=== PATIENT | male | born 1975 | race Caucasian/White ===

== ENCOUNTER 2016-07-22 18:31 | Emergency (ER) | payer SELFPAY ==
[2016-07-22] MEDS ORDERED: CLINDAMYCIN INJ 900MG/6ML VIAL As Ordered ONE (21:09)
[2016-07-22] MEDS ORDERED: methylPREDNISolone INJ 125 MG/2 ML VIAL (J2930) As Ordered ONE (21:09)
[2016-07-22 21:25] LABS: BASO % 0.3 % (0.0-1.0); EOS # 0.4 K/mm3 (0.0-0.50); EOS % 2.9 % (0.0-3.0); LARGE UNSTAINED CELL # 0.3 K/mm3 (0.0-0.4); LYMPH # 3.1 K/mm3 (1.5-4.5); LYMPH % 21.1 % (24.0-44.0); MEAN CORPUSCULAR HEMOGLOBIN 30.3 pg (27.0-33.0); MEAN CORPUSCULAR HGB CONC 31.5 g/dl (32.0-36.5); MEAN CORPUSCULAR VOLUME 96.5 fl (80.0-96.0); MONO # 0.9 K/mm3 (0.0-0.8); MONO % 6.9 % (0.0-5.0); NEUTROPHILS % 66.8 % (36.0-66.0); PLATELET COUNT, AUTOMATED 158 k/mm3 (150-450); RED CELL DISTRIBUTION WIDTH 12.3 % (11.5-14.5); WHITE BLOOD COUNT 13.5 K/mm3 (4.0-10.0)
[2016-07-22 21:42] LABS: ALBUMIN 3.6 GM/DL (3.2-5.2); ALBUMIN/GLOBULIN RATIO 1.03 (1.00-1.93); ALKALINE PHOSPHATASE 73 U/L (45-117); ALT/SGPT 52 U/L (12-78); ANION GAP 7 MEQ/L (8-16); AST/SGOT 24 U/L (15-37); BILIRUBIN,TOTAL 0.5 MG/DL (0.2-1.0); BLOOD UREA NITROGEN 10 MG/DL (7-18); CARBON DIOXIDE LEVEL 28 MEQ/L (21-32); CHLORIDE LEVEL 103 MEQ/L (98-107); CREATININE FOR GFR 0.97 MG/DL (0.70-1.30); GLOMERULAR FILTRATION RATE > 60.0 (>60); GLUCOSE, FASTING 132 MG/DL (70-105); POTASSIUM SERUM 3.6 MEQ/L (3.5-5.1); SODIUM LEVEL 138 MEQ/L (136-145); TOTAL PROTEIN 7.1 GM/DL (6.4-8.2)
[2016-07-22] MEDS ORDERED: ISOVUE-370 76% 100ML VIAL (Q9967) As Ordered ONE (21:59)
--- NOTE | 2016-07-22 22:50 | REPUSA ---
CT of the facial bones with contrast Clinical history: Pain, injury. Technique: Multiple axial CT images were obtained through the facial bones and paranasal sinuses util izing 3 mm axial slices after administration of nonionic intravenous contrast. Coronal and sagittal r econstructions were also obtained. Findings: This is nonspecific, derate diffuse mucosal thickening is seen in the left maxillary sinus. The other visualized paranasal sinuses are clear. The osteomeatal complexes are patent bilaterally. The nasal septum is midline. The visualized mastoid air cells are clear. The osseous structures do no t demonstrate any acute abnormalities. The superficial soft tissues are minimally swollen in the left preorbital and left maxillary regions. Impression: 1. Minimal superficial soft tissue swelling in the left preorbital and maxillary regions. This is non specific, but could represent early cellulitis in the appropriate clinical setting. No evidence of ab scess. 2. Chronic mucosal changes in the left maxillary sinus.
[2016-07-22 22:57] LABS: ERYTHROCYTE SEDIMENTATION RATE 8 mm/hr (0-15)
[2016-07-22] MEDS ORDERED: KETOROLAC 30 MG/ML VIAL (J1885) As Ordered ONE (23:07)
--- NOTE | 2016-07-22 23:17 | EDDOCDS ---
Physician Documentation [facility] Name: Uri Vogel Age: 41 yrs Sex: Male : 1975 Arrival Date: 07/22/2016 Time: 18:31 Bed I5 / M5 Private MD: NO PRIMARY PHYSICIAN, . Disposition: 07/22/16 23:03 Discharged to Home/Self Care. Impression: Cellulitis of face, Dental caries. - Condition is Stable. - Discharge Instructions: Dental Pain, Cellulitis, [id number]. - Prescriptions for Clindamycin HCl 300 mg Oral Capsule - take 1 capsule by ORAL route every 6 hours; 40 capsule. Diclofenac Sodium 75 mg Oral Tablet, Delayed Release (E.C.) - take 1 tablet by ORAL route 2 times per day; 30 tablet. - Medication Reconciliation, Local Pharmacy Hours form. - Follow up: Emergency Department; When: Tomorrow; Reason: Further diagnostic work-up, Recheck today's complaints, Continuance of care. - Problem is new. - Symptoms are unchanged. - Notes: IT IS IMPORTANT THAT YOU RETURN TO THE EMERGENCY DEPARTMENT AT 7AM TOMORROW MORNING FOR RE-EVALUATION AND REPEAT THE DOSE OF YOUR ANTIBIOTICS. Historical: - Allergies: no known allergies; - Home Meds: 1. none - PSHx: none; - Social history: Smoking status: Patient uses tobacco products, heavy tobacco smoker. No barriers to communication noted, The patient speaks fluent Welsh. - Family history: Not pertinent. - : The pt / caregiver states he / she is not on anticoagulants. Home medication list is obtained from the patient. - Exposure Risk Screening:: None identified. Vital Signs: 07/22 18:32 BP 186 / 103 LA Sitting (auto/lg); Pulse 108; Resp 18; Temp 97.6(O); Pulse Ox 98% on ct3 R/A; Weight 140.16 kg / 309 lbs (M); Height 5 ft. 6 in. (167.64 cm) (R); Pain 7/10; 18:32 BP 202 / 108 RA Sitting (auto/lg); ct3 20:54 BP 172 / 98; Pulse 92; Resp 18; Temp 97.8; Pulse Ox 97% ; Pain 8/10; ajs 23:08 BP 164 / 92 (man/); Pulse 82; Resp 20; Temp 95.3(T); Pulse Ox 96% on R/A; Pain 5/10; dsf 18:32 Body Mass Index 49.87 (140.16 kg, 167.64 cm) ct3 MDM: 20:43 IV Saline Lock ordered. btw 20:43 Recheck Vital Signs, perform reassessment and enter into [employer] ordered. btw 20:43 Clindamycin 900 mg IVPB once over 30 mins; dilute in 50mL of NS or D5W ordered. btw 20:43 Solu-MEDROL 125 mg IVP once ordered. btw 20:44 CBC with Diff Ordered. EDMS 20:44 Complete Comphrensive Metabolic Ordered. EDMS 20:44 CRP Ordered. EDMS 20:44 ESR Ordered. EDMS 20:44 CT Maxillofacial with contrast Ordered. EDMS 21:14 Financial registration complete. [facility] 21:25 [facility] Payment Agreement was scanned into [employer] and attached to record. gjb 21:44 CBC with Diff Reviewed. btw 21:44 Complete Comphrensive Metabolic Reviewed. btw 21:44 CRP Reviewed. btw 23:05 CBC with Diff Reviewed. btw 23:05 ESR Reviewed. btw 23:05 CT Maxillofacial with contrast Reviewed. btw 23:05 ketorolac 30 mg IVP once ordered. btw Administered Medications: 21:15 Drug: Solu-MEDROL 125 mg [Solu-Medrol 500 mg intravenous solution (125 mg)] Route: IVP; dsf Site: right hand; 21:16 Drug: Clindamycin 900 mg Route: IVPB; Infused Over: 30 mins; Site: right hand; dsf 21:52 Follow up: IV Status: Completed infusion; IV Intake: 50ml ld5 23:14 Drug: ketorolac 30 mg [ketorolac 30 mg/mL (1 mL) injection solution (1 mL)] Route: IVP; ld5 Site: right hand; 23:14 Follow up: Response: Pt left department before re-evaluation is appropriate ld5 Signatures: Dispatcher [employer] Kelsea Garduno RN RN dls Wolfenden, Brandon, PA PA btw Beverly Nelson RN RN ld5 Susana Burns Desiree RN dsf The chart was reviewed and I authenticate all verbal orders and agree with the evaluation and treatment provided.Attachments: 21:25 [facility] Payment Agreement gjb MTDD
--- NOTE | 2016-07-22 23:17 | EDDOCDS ---
Nurse's Notes [facility] Name: Uri Vogel Age: 41 yrs Sex: Male : 1975 Arrival Date: 07/22/2016 Time: 18:31 Bed I5 / M5 Private MD: NO PRIMARY PHYSICIAN, . Diagnosis: Cellulitis of face;Dental caries Presentation: 07/22 18:37 Presenting complaint: Patient states: Pt presents with left sided upper dental pain x 2 dls days tonight face and lower eyelid are swollen. Adult Sepsis Screening: The patient does not have new or worsening altered mentation. Patient's respiratory rate is less than 22. Systolic blood pressure is greater than 100. Patient has a qSOFA score of 1- Negative Sepsis Screen. Suicide/Homicide risk assessment- the patient denies having any suicidal and/or homicidal ideations and does not present with any other emotional, behavioral or mental health complaints. Status: Patient is not a general service officer or dependent. Transition of care: patient was not received from another setting of care. 18:37 Acuity: MACARENA Level 3 dls 18:37 Method Of Arrival: Walkin/Carried/Asstd dls Triage Assessment: 18:38 General: Appears uncomfortable, well developed, Behavior is cooperative. Pain: Pain dls currently is 7 out of 10 on a pain scale. HIV screening NA for this visit Offered previously. Historical: - Allergies: no known allergies; - Home Meds: 1. none - PSHx: none; - Social history: Smoking status: Patient uses tobacco products, heavy tobacco smoker. No barriers to communication noted, The patient speaks fluent Uzbek. - Family history: Not pertinent. - : The pt / caregiver states he / she is not on anticoagulants. Home medication list is obtained from the patient. - Exposure Risk Screening:: None identified. Screenin:14 Screening information is obtained from the patient. Fall risk: No risks identified. ld5 Assistance ADL's: requires no assistance with activities of daily living. Abuse/DV Screen: The patient / caregiver reports he/she is: not in a situation that causes fear, pain or injury. Nutritional screening: No deficits noted. Advance Directives: Currently, there is no health care proxy. home support is adequate. Assessment: 21:08 Adult Sepsis Screening: The patient does not have new or worsening altered mentation. dsf Patient's respiratory rate is less than 22. Systolic blood pressure is greater than 100. Patient has a qSOFA score of 0- Negative Sepsis Screen. General: Appears in no apparent distress, Behavior is appropriate for age, cooperative. Pain: Location: left cheek and left jaw Pain currently is 7 out of 10 on a pain scale. Neurological: Level of Consciousness is awake, alert. EENT: swelling and redness noted underneath left eye . Reports pain in left cheek and left jaw. Respiratory: Airway is patent Respiratory effort is even, unlabored, Respiratory pattern is regular, symmetrical. Derm: Skin is pink, warm & dry. 21:52 General: Pt sitting up in bed watching TV and playing on phone. No apparent distress. ld5 Awaiting CT scan. Will continue to monitor. 22:18 General: Pt returned from CT. Tolerated well. Will continue to monitor. ld5 22:31 General: Appears in no apparent distress, Behavior is appropriate for age, cooperative. dsf Pain: Location: left jaw and left cheek Pain currently is 5 out of 10 on a pain scale. Neurological: Level of Consciousness is awake, alert. Cardiovascular: No deficits noted. Respiratory: No deficits noted. Derm: Skin is pink, warm & dry. 23:14 General: Appears in no apparent distress, Behavior is cooperative. Neurological: Level ld5 of Consciousness is awake, alert. Respiratory: Airway is patent Respiratory effort is even, unlabored. Vital Signs: 18:32 BP 186 / 103 LA Sitting (auto/lg); Pulse 108; Resp 18; Temp 97.6(O); Pulse Ox 98% on ct3 R/A; Weight 140.16 kg (M); Height 5 ft. 6 in. (167.64 cm) (R); Pain 7/10; 18:32 BP 202 / 108 RA Sitting (auto/lg); ct3 20:54 BP 172 / 98; Pulse 92; Resp 18; Temp 97.8; Pulse Ox 97% ; Pain 8/10; ajs 23:08 BP 164 / 92 (man/); Pulse 82; Resp 20; Temp 95.3(T); Pulse Ox 96% on R/A; Pain 5/10; dsf 18:32 Body Mass Index 49.87 (140.16 kg, 167.64 cm) ct3 Vitals: 18:32 Log In Time: July 22, 2016 at 18:30. ct3 ED Course: 18:31 Patient visited by Janene Evangelista PCA. ct3 18:31 Patient moved to Waiting ct3 18:32 NO PRIMARY PHYSICIAN, . is Private Physician. ct3 18:35 Patient moved to Pre RCE ct3 18:38 Triage Initiated dls 20:20 Patient moved to Triage 2 jjr 20:35 Kevon Valle PA is PHCP. btw 20:35 Marques Taylor DO is Attending Physician. btw 20:35 Patient visited by Kevon Valle PA. btw 20:40 Debbie Varma,RN is Primary Nurse. ko2 20:40 Carmelina Aly, SHASHI is Primary Nurse. ko2 20:40 Patient moved to I3 / M3 ko2 20:43 Patient moved to I5 / M5 ko2 20:54 Patient visited by Veena Fitzgerald. ajs 21:07 ESR Sent. dsf 21:07 CRP Sent. dsf 21:07 Complete Comphrensive Metabolic Sent. dsf 21:07 CBC with Diff Sent. dsf 21:08 Inserted saline lock: 20 gauge in right hand The patient tolerated the procedure well. dsf 21:09 Patient visited by Sylvie Mac RN. dsf 21:25 [facility] Agreement was scanned into [employer] and attached to record. gjb 21:38 Patient name changed from Uri\S\\S\Coonradt\S\ to Uri\S\ \S\Coonradt. EDMS 21:52 Patient visited by Beverly Nelson RN. ld5 22:19 Patient visited by Beverly Nelson RN. ld5 22:32 Patient visited by Sylvie Mac RN. dsf 22:56 CT Maxillofacial with contrast Returned. EDMS 23:09 Flushed right hand Converted IV to saline lock on right hand right hand wrapped with dsf kerlix . 23:10 Patient visited by Sylvie Mac RN. dsf 23:14 The patient / caregiver is instructed regarding the plan of care and ED course. Patient ld5 has correct armband on for positive identification. 23:14 No procedures done that require assistance. ld5 23:17 Patient visited by Beverly Nelson RN. ld5 Administered Medications: 21:15 Drug: Solu-MEDROL 125 mg [Solu-Medrol 500 mg intravenous solution (125 mg)] Route: IVP; dsf Site: right hand; 21:16 Drug: Clindamycin 900 mg Route: IVPB; Infused Over: 30 mins; Site: right hand; dsf 21:52 Follow up: IV Status: Completed infusion; IV Intake: 50ml ld5 23:14 Drug: ketorolac 30 mg [ketorolac 30 mg/mL (1 mL) injection solution (1 mL)] Route: IVP; ld5 Site: right hand; 23:14 Follow up: Response: Pt left department before re-evaluation is appropriate ld5 Intake: 21:52 IV: 50.00ml; Total: 50.00ml. ld5 Order Results: Lab Order: CBC with Diff; SPEC'M 07/22/16 21:06 Test: WHITE BLOOD COUNT; Value: 13.5; Range: 4.0-10.0; Abnormal: Above high normal; Units: K/mm3; Status: F Test: RED BLOOD COUNT; Value: 4.83; Range: 4.30-6.10; Units: M/mm3; Status: F Test: HEMOGLOBIN; Value: 14.7; Range: 14.0-18.0; Units: g/dl; Status: F Test: HEMATOCRIT; Value: 46.6; Range: 42.0-52.0; Units: %; Status: F Test: MEAN CORPUSCULAR VOLUME; Value: 96.5; Range: 80.0-96.0; Abnormal: Above high normal; Units: fl; Status: F Test: MEAN CORPUSCULAR HEMOGLOBIN; Value: 30.3; Range: 27.0-33.0; Units: pg; Status: F Test: MEAN CORPUSCULAR HGB CONC; Value: 31.5; Range: 32.0-36.5; Abnormal: Below low normal; Units: g/dl; Status: F Test: RED CELL DISTRIBUTION WIDTH; Value: 12.3; Range: 11.5-14.5; Units: %; Status: F Test: PLATELET COUNT, AUTOMATED; Value: 158; Range: 150-450; Units: k/mm3; Status: F Test: NEUTROPHILS %; Value: 66.8; Range: 36.0-66.0; Abnormal: Above high normal; Units: %; Status: F Test: LYMPH %; Value: 21.1; Range: 24.0-44.0; Abnormal: Below low normal; Units: %; Status: F Test: MONO %; Value: 6.9; Range: 0.0-5.0; Abnormal: Above high normal; Units: %; Status: F Test: EOS %; Value: 2.9; Range: 0.0-3.0; Units: %; Status: F Test: BASO %; Value: 0.3; Range: 0.0-1.0; Units: %; Status: F Test: LARGE UNSTAINED CELL %; Value: 2.0; Range: 0.0-4.0; Units: %; Status: F Test: NEUTROPHILS #; Value: 9.0; Range: 1.8-7.7; Abnormal: Above high normal; Units: K/mm3; Status: F Test: LYMPH #; Value: 3.1; Range: 1.5-4.5; Units: K/mm3; Status: F Test: MONO #; Value: 0.9; Range: 0.0-0.8; Abnormal: Above high normal; Units: K/mm3; Status: F Test: EOS #; Value: 0.4; Range: 0.0-0.50; Units: K/mm3; Status: F Test: BASO #; Value: 0.0; Range: 0.0-0.2; Units: K/mm3; Status: F Test: LARGE UNSTAINED CELL #; Value: 0.3; Range: 0.0-0.4; Units: K/mm3; Status: F Lab Order: Complete Comphrensive Metabolic; SPEC'M 07/22/16 21:06 Test: GLUCOSE, FASTING; Value: 132; Range: 70-105; Abnormal: Above high normal; Units: MG/DL; Status: F Test: BLOOD UREA NITROGEN; Value: 10; Range: 7-18; Units: MG/DL; Status: F Test: CREATININE FOR GFR; Value: 0.97; Range: 0.70-1.30; Units: MG/DL; Status: F Test: GLOMERULAR FILTRATION RATE; Value: > 60.0; Range: >60; Status: F Test: SODIUM LEVEL; Value: 138; Range: 136-145; Units: MEQ/L; Status: F Test: POTASSIUM SERUM; Value: 3.6; Range: 3.5-5.1; Units: MEQ/L; Status: F Test: CHLORIDE LEVEL; Value: 103; Range: 98-107; Units: MEQ/L; Status: F Test: CARBON DIOXIDE LEVEL; Value: 28; Range: 21-32; Units: MEQ/L; Status: F Test: ANION GAP; Value: 7; Range: 8-16; Abnormal: Below low normal; Units: MEQ/L; Status: F Test: CALCIUM LEVEL; Value: 8.0; Range: 8.5-10.1; Abnormal: Below low normal; Units: MG/DL; Status: F Test: AST/SGOT; Value: 24; Range: 15-37; Units: U/L; Status: F Test: ALT/SGPT; Value: 52; Range: 12-78; Units: U/L; Status: F Test: ALKALINE PHOSPHATASE; Value: 73; Range: 45-117; Units: U/L; Status: F Test: BILIRUBIN,TOTAL; Value: 0.5; Range: 0.2-1.0; Units: MG/DL; Status: F Test: TOTAL PROTEIN; Value: 7.1; Range: 6.4-8.2; Units: GM/DL; Status: F Test: ALBUMIN; Value: 3.6; Range: 3.2-5.2; Units: GM/DL; Status: F Test: ALBUMIN/GLOBULIN RATIO; Value: 1.03; Range: 1.00-1.93; Status: F Test Note: ; Units are mL/min/1.73 m2 Chronic Kidney Disease Staging per NKF: Stage I & II GFR >=60 Normal to Mildly Decreased Stage III GFR 30-59 Moderately Decreased Stage IV GFR 15-29 Severely Decreased Stage V GFR <15 Very Little GFR Left ESRD GFR <15 on SENIOR STORAGE ADMINISTRATOR Lab Order: CRP; SPEC'M 07/22/16 21:06 Test: C REACTIVE PROTEIN QUANTITATIV; Value: 4.16; Range: 0.00-0.30; Abnormal: Above high normal; Units: MG/DL; Status: F Lab Order: ESR; SPEC'M 07/22/16 21:06 Test: ERYTHROCYTE SEDIMENTATION RATE; Value: 8; Range: 0-15; Units: mm/hr; Status: F Radiology Order: CT Maxillofacial with contrast Test: CT Maxillofacial with contrast REASON FOR EXAMINATION: ? abscess vs cellulitis.; ; CT of the facial bones with contrast; Clinical history: Pain, injury.; Technique: Multiple axial CT images were obtained through the facial bones and paranasal sinuses util; izing 3 mm axial slices after administration of nonionic intravenous contrast. Coronal and sagittal r; econstructions were also obtained.; Findings: This is nonspecific, derate diffuse mucosal thickening is seen in the left maxillary sinus.; The other visualized paranasal sinuses are clear. The osteomeatal complexes are patent bilaterally.; The nasal septum is midline. The visualized mastoid air cells are clear. The osseous structures do no; t demonstrate any acute abnormalities. The superficial soft tissues are minimally swollen in the left; preorbital and left maxillary regions.; Impression:; 1. Minimal superficial soft tissue swelling in the left preorbital and maxillary regions. This is non; specific, but could represent early cellulitis in the appropriate clinical setting. No evidence of ab; scess.; 2. Chronic mucosal changes in the left maxillary sinus.; ; Outcome: 23:03 Discharge ordered by Provider. btw 23:14 Discharge Assessment: Patient awake, alert and oriented x 3. No cognitive and/or ld5 functional deficits noted. Patient verbalized understanding of disposition instructions. patient administered narcotics - no. The following High Risk Discharge criteria are identified: None. Discharged to home ambulatory. Condition: stable. Discharge instructions given to patient, Instructed on discharge instructions, follow up and referral plans. medication usage, Demonstrated understanding of instructions, medications, Pt was receptive of discharge instructions/ teaching. Prescriptions given X 2. CT Study completed. Property :Personal belongings accompany Pt. 23:16 Patient left the ED. ld5 Signatures: Dispatcher MedHost EDMS Kelsea Khan RN RN dls Raymond, Jessica, RN RN jjr Wolfenden, Brandon, PA PA btw Beverly Nelson RN RN ld5 Janene Evangelista, CHIEF BUILDING INSPECTOR CHIEF BUILDING INSPECTOR ct3 Sylvie Mac RN RN dsf Slate, Amanda ajs Ogden, Kari, RN RN ko2 Susana Burns Corrections: (The following items were deleted from the chart) 18:35 18:32 BP 186 / 103 Sitting Auto L Arm Large; Pulse 108bpm; Resp 18bpm; Pulse Ox 98% RA; ct3 Temp 97.6F Oral; Height 5 ft. 6 in. Reported; Pain 7/10; ct3 MTDD
--- NOTE | 2016-07-25 00:18 | EDDOCDS ---
Physician Documentation [facility] Name: Uri Vogel Age: 41 yrs Sex: Male : 1975 Arrival Date: 07/22/2016 Time: 18:31 Bed I5 / M5 Private MD: NO PRIMARY PHYSICIAN, . Disposition: 07/22/16 23:03 Discharged to Home/Self Care. Impression: Cellulitis of face, Dental caries. - Condition is Stable. - Discharge Instructions: Dental Pain, Cellulitis, [id number]. - Prescriptions for Clindamycin HCl 300 mg Oral Capsule - take 1 capsule by ORAL route every 6 hours; 40 capsule. Diclofenac Sodium 75 mg Oral Tablet, Delayed Release (E.C.) - take 1 tablet by ORAL route 2 times per day; 30 tablet. - Medication Reconciliation, Local Pharmacy Hours form. - Follow up: Emergency Department; When: Tomorrow; Reason: Further diagnostic work-up, Recheck today's complaints, Continuance of care. - Problem is new. - Symptoms are unchanged. - Notes: IT IS IMPORTANT THAT YOU RETURN TO THE EMERGENCY DEPARTMENT AT 7AM TOMORROW MORNING FOR RE-EVALUATION AND REPEAT THE DOSE OF YOUR ANTIBIOTICS. Historical: - Allergies: no known allergies; - Home Meds: 1. none - PSHx: none; - Social history: Smoking status: Patient uses tobacco products, heavy tobacco smoker. No barriers to communication noted, The patient speaks fluent Wolof. - Family history: Not pertinent. - : The pt / caregiver states he / she is not on anticoagulants. Home medication list is obtained from the patient. - Exposure Risk Screening:: None identified. Vital Signs: 07/22 18:32 BP 186 / 103 LA Sitting (auto/lg); Pulse 108; Resp 18; Temp 97.6(O); Pulse Ox 98% on ct3 R/A; Weight 140.16 kg / 309 lbs (M); Height 5 ft. 6 in. (167.64 cm) (R); Pain 7/10; 18:32 BP 202 / 108 RA Sitting (auto/lg); ct3 20:54 BP 172 / 98; Pulse 92; Resp 18; Temp 97.8; Pulse Ox 97% ; Pain 8/10; ajs 23:08 BP 164 / 92 (man/); Pulse 82; Resp 20; Temp 95.3(T); Pulse Ox 96% on R/A; Pain 5/10; dsf 18:32 Body Mass Index 49.87 (140.16 kg, 167.64 cm) ct3 MDM: 20:43 IV Saline Lock ordered. btw 20:43 Recheck Vital Signs, perform reassessment and enter into [place] ordered. btw 20:43 Clindamycin 900 mg IVPB once over 30 mins; dilute in 50mL of NS or D5W ordered. btw 20:43 Solu-MEDROL 125 mg IVP once ordered. btw 20:44 CBC with Diff Ordered. EDMS 20:44 Complete Comphrensive Metabolic Ordered. EDMS 20:44 CRP Ordered. EDMS 20:44 ESR Ordered. EDMS 20:44 CT Maxillofacial with contrast Ordered. EDMS 21:14 Financial registration complete. [facility] [place] 21:25 [facility] Payment Agreement was scanned into [employer] and attached to record. gjb 21:44 CBC with Diff Reviewed. btw 21:44 Complete Comphrensive Metabolic Reviewed. btw 21:44 CRP Reviewed. btw 23:05 CBC with Diff Reviewed. btw 23:05 ESR Reviewed. btw 23:05 CT Maxillofacial with contrast Reviewed. btw 23:05 ketorolac 30 mg IVP once ordered. btw 07/23 09:45 T-Sheet-- Draft Copy was scanned into [employer] and attached to record. gb Administered Medications: 07/22 21:15 Drug: Solu-MEDROL 125 mg [Solu-Medrol 500 mg intravenous solution (125 mg)] Route: IVP; dsf Site: right hand; 21:16 Drug: Clindamycin 900 mg Route: IVPB; Infused Over: 30 mins; Site: right hand; dsf 21:52 Follow up: IV Status: Completed infusion; IV Intake: 50ml ld5 23:14 Drug: ketorolac 30 mg [ketorolac 30 mg/mL (1 mL) injection solution (1 mL)] Route: IVP; ld5 Site: right hand; 23:14 Follow up: Response: Pt left department before re-evaluation is appropriate ld5 Signatures: Dispatcher [employer] EDKelsea Devine RN RN dls Yumiko Obrien, Reg Reg Kevon Millan PA PA btw Beverly Nelson RN RN ld5 Susana Burns Desiree RN dsf The chart was reviewed and I authenticate all verbal orders and agree with the evaluation and treatment provided.Attachments: 21:25 [facility] Payment Agreement [email or web address] 07/23 09:45 T-Sheet-- Draft Copy gb Chart Complete MTDD
--- NOTE | 2016-07-25 00:18 | EDDOCDS ---
Nurse's Notes [facility] Name: Uri Vogel Age: 41 yrs Sex: Male : 1975 Arrival Date: 07/22/2016 Time: 18:31 Bed I5 / M5 Private MD: NO PRIMARY PHYSICIAN, . Diagnosis: Cellulitis of face;Dental caries Presentation: 07/22 18:37 Presenting complaint: Patient states: Pt presents with left sided upper dental pain x 2 dls days tonight face and lower eyelid are swollen. Adult Sepsis Screening: The patient does not have new or worsening altered mentation. Patient's respiratory rate is less than 22. Systolic blood pressure is greater than 100. Patient has a qSOFA score of 1- Negative Sepsis Screen. Suicide/Homicide risk assessment- the patient denies having any suicidal and/or homicidal ideations and does not present with any other emotional, behavioral or mental health complaints. Status: Patient is not a health service coordinator or dependent. Transition of care: patient was not received from another setting of care. 18:37 Acuity: MACARENA Level 3 dls 18:37 Method Of Arrival: Walkin/Carried/Asstd dls Triage Assessment: 18:38 General: Appears uncomfortable, well developed, Behavior is cooperative. Pain: Pain dls currently is 7 out of 10 on a pain scale. HIV screening NA for this visit Offered previously. Historical: - Allergies: no known allergies; - Home Meds: 1. none - PSHx: none; - Social history: Smoking status: Patient uses tobacco products, heavy tobacco smoker. No barriers to communication noted, The patient speaks fluent Maori. - Family history: Not pertinent. - : The pt / caregiver states he / she is not on anticoagulants. Home medication list is obtained from the patient. - Exposure Risk Screening:: None identified. Screenin:14 Screening information is obtained from the patient. Fall risk: No risks identified. ld5 Assistance ADL's: requires no assistance with activities of daily living. Abuse/DV Screen: The patient / caregiver reports he/she is: not in a situation that causes fear, pain or injury. Nutritional screening: No deficits noted. Advance Directives: Currently, there is no health care proxy. home support is adequate. Assessment: 21:08 Adult Sepsis Screening: The patient does not have new or worsening altered mentation. dsf Patient's respiratory rate is less than 22. Systolic blood pressure is greater than 100. Patient has a qSOFA score of 0- Negative Sepsis Screen. General: Appears in no apparent distress, Behavior is appropriate for age, cooperative. Pain: Location: left cheek and left jaw Pain currently is 7 out of 10 on a pain scale. Neurological: Level of Consciousness is awake, alert. EENT: swelling and redness noted underneath left eye . Reports pain in left cheek and left jaw. Respiratory: Airway is patent Respiratory effort is even, unlabored, Respiratory pattern is regular, symmetrical. Derm: Skin is pink, warm & dry. 21:52 General: Pt sitting up in bed watching TV and playing on phone. No apparent distress. ld5 Awaiting CT scan. Will continue to monitor. 22:18 General: Pt returned from CT. Tolerated well. Will continue to monitor. ld5 22:31 General: Appears in no apparent distress, Behavior is appropriate for age, cooperative. dsf Pain: Location: left jaw and left cheek Pain currently is 5 out of 10 on a pain scale. Neurological: Level of Consciousness is awake, alert. Cardiovascular: No deficits noted. Respiratory: No deficits noted. Derm: Skin is pink, warm & dry. 23:14 General: Appears in no apparent distress, Behavior is cooperative. Neurological: Level ld5 of Consciousness is awake, alert. Respiratory: Airway is patent Respiratory effort is even, unlabored. Vital Signs: 18:32 BP 186 / 103 LA Sitting (auto/lg); Pulse 108; Resp 18; Temp 97.6(O); Pulse Ox 98% on ct3 R/A; Weight 140.16 kg (M); Height 5 ft. 6 in. (167.64 cm) (R); Pain 7/10; 18:32 BP 202 / 108 RA Sitting (auto/lg); ct3 20:54 BP 172 / 98; Pulse 92; Resp 18; Temp 97.8; Pulse Ox 97% ; Pain 8/10; ajs 23:08 BP 164 / 92 (man/); Pulse 82; Resp 20; Temp 95.3(T); Pulse Ox 96% on R/A; Pain 5/10; dsf 18:32 Body Mass Index 49.87 (140.16 kg, 167.64 cm) ct3 Vitals: 18:32 Log In Time: July 22, 2016 at 18:30. ct3 ED Course: 18:31 Patient visited by Janene Evangelista PCA. ct3 18:31 Patient moved to Waiting ct3 18:32 NO PRIMARY PHYSICIAN, . is Private Physician. ct3 18:35 Patient moved to Pre RCE ct3 18:38 Triage Initiated dls 20:20 Patient moved to Triage 2 jjr 20:35 Kevon Valle PA is PHCP. btw 20:35 Marques Taylor DO is Attending Physician. btw 20:35 Patient visited by Kevon Valle PA. btw 20:40 Debbie Varma,RN is Primary Nurse. ko2 20:40 Carmelina Aly, SHASHI is Primary Nurse. ko2 20:40 Patient moved to I3 / M3 ko2 20:43 Patient moved to I5 / M5 ko2 20:54 Patient visited by Veena Fitzgerald. ajs 21:07 ESR Sent. dsf 21:07 CRP Sent. dsf 21:07 Complete Comphrensive Metabolic Sent. dsf 21:07 CBC with Diff Sent. dsf 21:08 Inserted saline lock: 20 gauge in right hand The patient tolerated the procedure well. dsf 21:09 Patient visited by Sylvie Mac RN. dsf 21:25 [facility] Payment Agreement was scanned into [employer] and attached to record. gjb 21:38 Patient name changed from Uri\S\\S\Coonradt\S\ to Uri\S\ \S\Coonradt. EDMS 21:52 Patient visited by Beverly Nelson RN. ld5 22:19 Patient visited by Beverly Nelson RN. ld5 22:32 Patient visited by Sylvie Mac RN. dsf 22:56 CT Maxillofacial with contrast Returned. EDMS 23:09 Flushed right hand Converted IV to saline lock on right hand right hand wrapped with dsf kerlix . 23:10 Patient visited by Sylvie Mac RN. dsf 23:14 The patient / caregiver is instructed regarding the plan of care and ED course. Patient ld5 has correct armband on for positive identification. 23:14 No procedures done that require assistance. ld5 23:17 Patient visited by Beverly Nelson RN. ld5 07/23 09:45 T-Sheet-- Draft Copy was scanned into [employer] and attached to record. gb Administered Medications: 07/22 21:15 Drug: Solu-MEDROL 125 mg [Solu-Medrol 500 mg intravenous solution (125 mg)] Route: IVP; dsf Site: right hand; 21:16 Drug: Clindamycin 900 mg Route: IVPB; Infused Over: 30 mins; Site: right hand; dsf 21:52 Follow up: IV Status: Completed infusion; IV Intake: 50ml ld5 23:14 Drug: ketorolac 30 mg [ketorolac 30 mg/mL (1 mL) injection solution (1 mL)] Route: IVP; ld5 Site: right hand; 23:14 Follow up: Response: Pt left department before re-evaluation is appropriate ld5 Intake: 21:52 IV: 50.00ml; Total: 50.00ml. ld5 Order Results: Lab Order: CBC with Diff; SPEC'M 07/22/16 21:06 Test: WHITE BLOOD COUNT; Value: 13.5; Range: 4.0-10.0; Abnormal: Above high normal; Units: K/mm3; Status: F Test: RED BLOOD COUNT; Value: 4.83; Range: 4.30-6.10; Units: M/mm3; Status: F Test: HEMOGLOBIN; Value: 14.7; Range: 14.0-18.0; Units: g/dl; Status: F Test: HEMATOCRIT; Value: 46.6; Range: 42.0-52.0; Units: %; Status: F Test: MEAN CORPUSCULAR VOLUME; Value: 96.5; Range: 80.0-96.0; Abnormal: Above high normal; Units: fl; Status: F Test: MEAN CORPUSCULAR HEMOGLOBIN; Value: 30.3; Range: 27.0-33.0; Units: pg; Status: F Test: MEAN CORPUSCULAR HGB CONC; Value: 31.5; Range: 32.0-36.5; Abnormal: Below low normal; Units: g/dl; Status: F Test: RED CELL DISTRIBUTION WIDTH; Value: 12.3; Range: 11.5-14.5; Units: %; Status: F Test: PLATELET COUNT, AUTOMATED; Value: 158; Range: 150-450; Units: k/mm3; Status: F Test: NEUTROPHILS %; Value: 66.8; Range: 36.0-66.0; Abnormal: Above high normal; Units: %; Status: F Test: LYMPH %; Value: 21.1; Range: 24.0-44.0; Abnormal: Below low normal; Units: %; Status: F Test: MONO %; Value: 6.9; Range: 0.0-5.0; Abnormal: Above high normal; Units: %; Status: F Test: EOS %; Value: 2.9; Range: 0.0-3.0; Units: %; Status: F Test: BASO %; Value: 0.3; Range: 0.0-1.0; Units: %; Status: F Test: LARGE UNSTAINED CELL %; Value: 2.0; Range: 0.0-4.0; Units: %; Status: F Test: NEUTROPHILS #; Value: 9.0; Range: 1.8-7.7; Abnormal: Above high normal; Units: K/mm3; Status: F Test: LYMPH #; Value: 3.1; Range: 1.5-4.5; Units: K/mm3; Status: F Test: MONO #; Value: 0.9; Range: 0.0-0.8; Abnormal: Above high normal; Units: K/mm3; Status: F Test: EOS #; Value: 0.4; Range: 0.0-0.50; Units: K/mm3; Status: F Test: BASO #; Value: 0.0; Range: 0.0-0.2; Units: K/mm3; Status: F Test: LARGE UNSTAINED CELL #; Value: 0.3; Range: 0.0-0.4; Units: K/mm3; Status: F Lab Order: Complete Comphrensive Metabolic; SPEC'M 07/22/16 21:06 Test: GLUCOSE, FASTING; Value: 132; Range: 70-105; Abnormal: Above high normal; Units: MG/DL; Status: F Test: BLOOD UREA NITROGEN; Value: 10; Range: 7-18; Units: MG/DL; Status: F Test: CREATININE FOR GFR; Value: 0.97; Range: 0.70-1.30; Units: MG/DL; Status: F Test: GLOMERULAR FILTRATION RATE; Value: > 60.0; Range: >60; Status: F Test: SODIUM LEVEL; Value: 138; Range: 136-145; Units: MEQ/L; Status: F Test: POTASSIUM SERUM; Value: 3.6; Range: 3.5-5.1; Units: MEQ/L; Status: F Test: CHLORIDE LEVEL; Value: 103; Range: 98-107; Units: MEQ/L; Status: F Test: CARBON DIOXIDE LEVEL; Value: 28; Range: 21-32; Units: MEQ/L; Status: F Test: ANION GAP; Value: 7; Range: 8-16; Abnormal: Below low normal; Units: MEQ/L; Status: F Test: CALCIUM LEVEL; Value: 8.0; Range: 8.5-10.1; Abnormal: Below low normal; Units: MG/DL; Status: F Test: AST/SGOT; Value: 24; Range: 15-37; Units: U/L; Status: F Test: ALT/SGPT; Value: 52; Range: 12-78; Units: U/L; Status: F Test: ALKALINE PHOSPHATASE; Value: 73; Range: 45-117; Units: U/L; Status: F Test: BILIRUBIN,TOTAL; Value: 0.5; Range: 0.2-1.0; Units: MG/DL; Status: F Test: TOTAL PROTEIN; Value: 7.1; Range: 6.4-8.2; Units: GM/DL; Status: F Test: ALBUMIN; Value: 3.6; Range: 3.2-5.2; Units: GM/DL; Status: F Test: ALBUMIN/GLOBULIN RATIO; Value: 1.03; Range: 1.00-1.93; Status: F Test Note: ; Units are mL/min/1.73 m2 Chronic Kidney Disease Staging per NKF: Stage I & II GFR >=60 Normal to Mildly Decreased Stage III GFR 30-59 Moderately Decreased Stage IV GFR 15-29 Severely Decreased Stage V GFR <15 Very Little GFR Left ESRD GFR <15 on LITERARY WRITER Lab Order: CRP; SPEC'M 07/22/16 21:06 Test: C REACTIVE PROTEIN QUANTITATIV; Value: 4.16; Range: 0.00-0.30; Abnormal: Above high normal; Units: MG/DL; Status: F Lab Order: ESR; SPEC'M 07/22/16 21:06 Test: ERYTHROCYTE SEDIMENTATION RATE; Value: 8; Range: 0-15; Units: mm/hr; Status: F Radiology Order: CT Maxillofacial with contrast Test: CT Maxillofacial with contrast REASON FOR EXAMINATION: ? abscess vs cellulitis.; ; CT of the facial bones with contrast; Clinical history: Pain, injury.; Technique: Multiple axial CT images were obtained through the facial bones and paranasal sinuses util; izing 3 mm axial slices after administration of nonionic intravenous contrast. Coronal and sagittal r; econstructions were also obtained.; Findings: This is nonspecific, derate diffuse mucosal thickening is seen in the left maxillary sinus.; The other visualized paranasal sinuses are clear. The osteomeatal complexes are patent bilaterally.; The nasal septum is midline. The visualized mastoid air cells are clear. The osseous structures do no; t demonstrate any acute abnormalities. The superficial soft tissues are minimally swollen in the left; preorbital and left maxillary regions.; Impression:; 1. Minimal superficial soft tissue swelling in the left preorbital and maxillary regions. This is non; specific, but could represent early cellulitis in the appropriate clinical setting. No evidence of ab; scess.; 2. Chronic mucosal changes in the left maxillary sinus.; ; Outcome: 23:03 Discharge ordered by Provider. btw 23:14 Discharge Assessment: Patient awake, alert and oriented x 3. No cognitive and/or ld5 functional deficits noted. Patient verbalized understanding of disposition instructions. patient administered narcotics - no. The following High Risk Discharge criteria are identified: None. Discharged to home ambulatory. Condition: stable. Discharge instructions given to patient, Instructed on discharge instructions, follow up and referral plans. medication usage, Demonstrated understanding of instructions, medications, Pt was receptive of discharge instructions/ teaching. Prescriptions given X 2. CT Study completed. Property :Personal belongings accompany Pt. 23:16 Patient left the ED. ld5 Signatures: Dispatcher [employer] EDMS Kelsea Khan RN RN dls Barnhardt, Gloria, Reg Reg Debbie Roman RN RN jjr Wolfenden, Brandon, PA PA btw Beverly Nelson RN RN ld5 Janene Evangelista, HOG KILLER HOG KILLER ct3 Sylvie Mac RN RN Veena Richmond Kari, RN RN ko2 Susana Burns Corrections: (The following items were deleted from the chart) 18:35 18:32 BP 186 / 103 Sitting Auto L Arm Large; Pulse 108bpm; Resp 18bpm; Pulse Ox 98% RA; ct3 Temp 97.6F Oral; Height 5 ft. 6 in. Reported; Pain 7/10; ct3 Chart Complete MTDD
--- NOTE | 2016-07-25 00:18 | EDDOCDS ---
Physician Documentation [facility] Name: Uri Vogel Age: 41 yrs Sex: Male : 1975 Arrival Date: 07/22/2016 Time: 18:31 Bed I5 / M5 Private MD: NO PRIMARY PHYSICIAN, . Disposition: 07/22/16 23:03 Discharged to Home/Self Care. Impression: Cellulitis of face, Dental caries. - Condition is Stable. - Discharge Instructions: Dental Pain, Cellulitis, [id number]. - Prescriptions for Clindamycin HCl 300 mg Oral Capsule - take 1 capsule by ORAL route every 6 hours; 40 capsule. Diclofenac Sodium 75 mg Oral Tablet, Delayed Release (E.C.) - take 1 tablet by ORAL route 2 times per day; 30 tablet. - Medication Reconciliation, Local Pharmacy Hours form. - Follow up: Emergency Department; When: Tomorrow; Reason: Further diagnostic work-up, Recheck today's complaints, Continuance of care. - Problem is new. - Symptoms are unchanged. - Notes: IT IS IMPORTANT THAT YOU RETURN TO THE EMERGENCY DEPARTMENT AT 7AM TOMORROW MORNING FOR RE-EVALUATION AND REPEAT THE DOSE OF YOUR ANTIBIOTICS. Historical: - Allergies: no known allergies; - Home Meds: 1. none - PSHx: none; - Social history: Smoking status: Patient uses tobacco products, heavy tobacco smoker. No barriers to communication noted, The patient speaks fluent Estonian. - Family history: Not pertinent. - : The pt / caregiver states he / she is not on anticoagulants. Home medication list is obtained from the patient. - Exposure Risk Screening:: None identified. Vital Signs: 07/22 18:32 BP 186 / 103 LA Sitting (auto/lg); Pulse 108; Resp 18; Temp 97.6(O); Pulse Ox 98% on ct3 R/A; Weight 140.16 kg / 309 lbs (M); Height 5 ft. 6 in. (167.64 cm) (R); Pain 7/10; 18:32 BP 202 / 108 RA Sitting (auto/lg); ct3 20:54 BP 172 / 98; Pulse 92; Resp 18; Temp 97.8; Pulse Ox 97% ; Pain 8/10; ajs 23:08 BP 164 / 92 (man/); Pulse 82; Resp 20; Temp 95.3(T); Pulse Ox 96% on R/A; Pain 5/10; dsf 18:32 Body Mass Index 49.87 (140.16 kg, 167.64 cm) ct3 MDM: 20:43 IV Saline Lock ordered. btw 20:43 Recheck Vital Signs, perform reassessment and enter into [place] ordered. btw 20:43 Clindamycin 900 mg IVPB once over 30 mins; dilute in 50mL of NS or D5W ordered. btw 20:43 Solu-MEDROL 125 mg IVP once ordered. btw 20:44 CBC with Diff Ordered. EDMS 20:44 Complete Comphrensive Metabolic Ordered. EDMS 20:44 CRP Ordered. EDMS 20:44 ESR Ordered. EDMS 20:44 CT Maxillofacial with contrast Ordered. EDMS 21:14 Financial registration complete. [facility] 21:25 [facility] Payment Agreement was scanned into [employer] and attached to record. gjb 21:44 CBC with Diff Reviewed. btw 21:44 Complete Comphrensive Metabolic Reviewed. btw 21:44 CRP Reviewed. btw 23:05 CBC with Diff Reviewed. btw 23:05 ESR Reviewed. btw 23:05 CT Maxillofacial with contrast Reviewed. btw 23:05 ketorolac 30 mg IVP once ordered. btw 07/23 09:45 T-Sheet-- Draft Copy was scanned into [employer] and attached to record. gb Administered Medications: 07/22 21:15 Drug: Solu-MEDROL 125 mg [Solu-Medrol 500 mg intravenous solution (125 mg)] Route: IVP; dsf Site: right hand; 21:16 Drug: Clindamycin 900 mg Route: IVPB; Infused Over: 30 mins; Site: right hand; dsf 21:52 Follow up: IV Status: Completed infusion; IV Intake: 50ml ld5 23:14 Drug: ketorolac 30 mg [ketorolac 30 mg/mL (1 mL) injection solution (1 mL)] Route: IVP; ld5 Site: right hand; 23:14 Follow up: Response: Pt left department before re-evaluation is appropriate ld5 Signatures: Dispatcher [employer] EDKelsea Devine RN RN dls Yumiko Obrien, Reg Reg Kevon Millan PA PA btw Beverly Nelson RN RN ld5 Susana Burns Desiree RN dsf The chart was reviewed and I authenticate all verbal orders and agree with the evaluation and treatment provided.Attachments: 21:25 [facility] Payment Agreement [email or web address] 07/23 09:45 T-Sheet-- Draft Copy gb Chart Complete MTDD
== END 2016-07-22 23:16 | disposition home or self-care (01) ==
LOC: M ED 18:31
DX: K02.9 Dental caries, unspecified (principal); L03.211 Cellulitis of face
CPT/HCPCS: 70487; 80053; 85025; 85652; 86140; 96365; 96375; 99284; J1885; J2930; Q9967

== ENCOUNTER 2016-07-23 06:55 | Emergency (ER) | payer SELFPAY ==
[2016-07-23] MEDS ORDERED: CLINDAMYCIN INJ 900MG/6ML VIAL As Ordered ONE (07:19)
[2016-07-23] MEDS ORDERED: KETOROLAC 30 MG/ML VIAL (J1885) As Ordered ONE (07:19)
--- NOTE | 2016-07-23 08:16 | EDDOCDS ---
[facility] Name: Uri Vogel Age: 41 yrs Sex: Male : 1975 Arrival Date: 07/23/2016 Time: 06:55 Bed I5 / M5 Private MD: Diagnosis: Cellulitis and acute lymphangitis of face and neck Presentation: 07/23 07:02 Presenting complaint: Patient states: here for IV antibiotics for treatment of dental kr3 abscess. Reports significant improvement. Adult Sepsis Screening: The patient does not have new or worsening altered mentation. Patient's respiratory rate is less than 22. Systolic blood pressure is greater than 100. Patient has a qSOFA score of 0- Negative Sepsis Screen. Suicide/Homicide risk assessment- the patient denies having any suicidal and/or homicidal ideations and does not present with any other emotional, behavioral or mental health complaints. Status: Patient is not a environmental services supervisor or dependent. Transition of care: patient was not received from another setting of care. 07:02 Acuity: MACARENA Level 4 kr3 07:02 Method Of Arrival: Walkin/Carried/Asstd kr3 Triage Assessment: 07:03 General: Appears in no apparent distress, comfortable, Behavior is appropriate for age, kr3 cooperative. Pain: Location: face Pain currently is 3 out of 10 on a pain scale. Quality of pain is described as pressure. HIV screening NA for this visit Offered previously. Historical: - Allergies: mushrooms; Strawberries; - Home Meds: 1. none - PMHx: none; - PSHx: none; - Social history: Smoking status: Patient uses tobacco products, current every day smoker. No barriers to communication noted, The patient speaks fluent Serbian, Speaks appropriately for age. - Family history: Not pertinent. - : The pt / caregiver states he / she is not on anticoagulants. Home medication list is obtained from the patient. - Exposure Risk Screening:: None identified. Screenin:25 Screening information is obtained from the patient. Fall risk: No risks identified. [facility] Assistance ADL's: requires no assistance with activities of daily living. Abuse/DV Screen: The patient / caregiver reports he/she is: not in a situation that causes fear, pain or injury. Nutritional screening: No deficits noted. Advance Directives: Currently, there is no health care proxy. There is no active DNR order. There is no living will. There is no Power of Joint Supervisor. Advance directive information has not previously been placed in an [facility] medical record. Further advance directive information is declined. home support is adequate. Assessment: 07:25 General: Appears in no apparent distress, comfortable, well nourished, well groomed, kpj Behavior is appropriate for age, pleasant. Pain: Location: left cheek, left eye and left jaw Pain currently is 2 out of 10 on a pain scale. Neurological: Level of Consciousness is awake, alert, Oriented to person, place, time. EENT: Poor dentition noted. Dental caries noted in upper left first molar (#14). Respiratory: Airway is patent Respiratory effort is even, unlabored, Respiratory pattern is regular, symmetrical. Derm: Skin is pink, warm & dry. Swollen area noted on left cheek, left eye and left jaw. 07:45 General: patient requesting to receive IV Toradol prior to discharge.. kpj 08:15 Reassessment: Patient appears in no apparent distress at this time. Patient states kpj feeling better. Patient states symptoms have improved. Pain: Location: left jaw and left eye and left cheek Pain currently is 1 out of 10 on a pain scale. Respiratory: Airway is patent Respiratory effort is even, unlabored, Respiratory pattern is regular, symmetrical. Derm: Skin is pink, warm & dry. Swollen area noted on left jaw and left eye and left cheek. Vital Signs: 07:03 BP 181 / 93; Pulse 114; Resp 18; Temp 96.2(O); Pulse Ox 97% ; Weight 139.71 kg (M); kr3 Height 5 ft. 6 in. (167.64 cm) (R); 08:04 BP 139 / 81; Pulse 96; Resp 20; Temp 96.7; Pulse Ox 97% ; Pain 0/10; jam1 07:03 Body Mass Index 49.71 (139.71 kg, 167.64 cm) kr3 Vitals: 07:03 Log In Time: July 23, 2016 at 06:55. kr3 ED Course: 06:57 Patient visited by Fady Lowe, Reg. pm4 06:57 Patient moved to Waiting pm4 07:03 Triage Initiated kr3 07:06 Patient moved to I5 / kr3 07:16 César Aponte PA-C is PHCP. cc10 07:16 Billy Khalil MD is Attending Physician. cc10 07:16 Patient visited by César Aponet PA-C. cc10 07:16 Patient visited by César Aponte PA-C. cc10 07:25 No apparent distress. Resting quietly. Awaiting IV antibiotic to infuse.. kpj 07:25 The patient / caregiver is instructed regarding the plan of care and ED course. Patient kpj has correct armband on for positive identification. 07:25 IV is patent, is intact, is free of redness or swelling. saline lock 20 gauge dorsal kpj aspect right hand.. 07:28 [facility] is Referral Physician. cc10 08:14 [facility] Payment Agreement was scanned into [employer] and attached to record. jp5 08:15 Discontinued lock intact, bleeding controlled, pressure dressing applied, No kpj redness/swelling at site. No procedures done that require assistance. Administered Medications: 07:25 Drug: Clindamycin 900 mg [clindamycin 900 mg/50 mL in 5 % dextrose intravenous kpj piggyback] Route: IVPB; Infused Over: 30 mins; Site: right hand; 08:00 Follow up: IV Status: Completed infusion; Infusion discontinued kpj 08:01 Drug: ketorolac 30 mg [ketorolac 30 mg/mL (1 mL) injection solution (1 mL)] Route: IVP; kpj Site: right hand; 08:14 Follow up: Response: Pain is decreased kpj Intake: 08:01 IV: 50.00ml (NS); Total: 50.00ml. kpj Order Results: There are currently no results for this order. Outcome: 07:28 Discharge ordered by Provider. cc10 08:15 Discharge Assessment: Patient awake, alert and oriented x 3. No cognitive and/or kpj functional deficits noted. Patient verbalized understanding of disposition instructions. patient administered narcotics - no. The following High Risk Discharge criteria are identified: None. Discharged to home ambulatory. Condition: stable. Discharge instructions given to patient, Instructed on discharge instructions, follow up and referral plans. medication usage, Use of warm compresses to the affected area, Demonstrated understanding of instructions, medications, Pt was receptive of discharge instructions/ teaching. No special radiology studies were completed. Property sent home with patient. 08:16 Patient left the ED. [facility] Signatures: Ana Carbajal, RN RN Loreto Joe, ELANA SECONDARY HISTORY TEACHER jam1 Jessica Ahn,RN RN kr3 César Aponte PA-C PAAlona cc10 Semaj Jackson jp5 Fady Lowe, Reg Reg pm4 MTDD
--- NOTE | 2016-07-23 08:16 | EDDOCDS ---
Physician Documentation [facility] Name: Uri Vogel Age: 41 yrs Sex: Male : 1975 Arrival Date: 07/23/2016 Time: 06:55 Bed I5 / M5 Private MD: Disposition: 07/23/16 07:28 Discharged to Home/Self Care. Impression: Cellulitis and acute lymphangitis of face and neck. - Condition is Stable. - Medication Reconciliation, Dental Referral List form. - Follow up: [facility]; When: Call to arrange an appointment; Reason: To establish care. - Problem is an ongoing problem. - Symptoms are unchanged. - Notes: Please resume the medications that were prescribed last night. Follow up with a PCP for a blood pressure recheck. Call your dentist for re-evaluation. Historical: - Allergies: mushrooms; Strawberries; - Home Meds: 1. none - PMHx: none; - PSHx: none; - Social history: Smoking status: Patient uses tobacco products, current every day smoker. No barriers to communication noted, The patient speaks fluent Nepali, Speaks appropriately for age. - Family history: Not pertinent. - : The pt / caregiver states he / she is not on anticoagulants. Home medication list is obtained from the patient. - Exposure Risk Screening:: None identified. Vital Signs: 07/23 07:03 BP 181 / 93; Pulse 114; Resp 18; Temp 96.2(O); Pulse Ox 97% ; Weight 139.71 kg / 308.01 kr3 lbs (M); Height 5 ft. 6 in. (167.64 cm) (R); 08:04 BP 139 / 81; Pulse 96; Resp 20; Temp 96.7; Pulse Ox 97% ; Pain 0/10; jam1 07:03 Body Mass Index 49.71 (139.71 kg, 167.64 cm) kr3 MDM: 07:16 IV Saline Lock ordered. cc10 07:16 Clindamycin 900 mg IVPB once over 30 mins; dilute in 50mL of NS or D5W ordered. cc10 07:16 ketorolac 30 mg IVP once ordered. cc10 08:14 [facility] Payment Agreement was scanned into [employer] and attached to record. jp5 08:14 Financial registration complete. jp5 Administered Medications: 07:25 Drug: Clindamycin 900 mg [clindamycin 900 mg/50 mL in 5 % dextrose intravenous [facility] piggyback] Route: IVPB; Infused Over: 30 mins; Site: right hand; 08:00 Follow up: IV Status: Completed infusion; Infusion discontinued [facility] 08:01 Drug: ketorolac 30 mg [ketorolac 30 mg/mL (1 mL) injection solution (1 mL)] Route: IVP; kp Site: right hand; 08:14 Follow up: Response: Pain is decreased [facility] Signatures: Ana Carbajal RN RN [facility] Jessica AhnRN RN kr3 César Aponte, PA-C PA-C cc10 Semaj Jackson jp5 The chart was reviewed and I authenticate all verbal orders and agree with the evaluation and treatment provided.Attachments: 08:14 [facility] Payment Agreement jp5 MTDD
--- NOTE | 2016-07-25 09:17 | EDDOCDS ---
Nurse's Notes [facility] Name: Uri Vogel Age: 41 yrs Sex: Male : 1975 Arrival Date: 07/23/2016 Time: 06:55 Bed I5 / M5 Private MD: Diagnosis: Cellulitis and acute lymphangitis of face and neck Presentation: 07/23 07:02 Presenting complaint: Patient states: here for IV antibiotics for treatment of dental kr3 abscess. Reports significant improvement. Adult Sepsis Screening: The patient does not have new or worsening altered mentation. Patient's respiratory rate is less than 22. Systolic blood pressure is greater than 100. Patient has a qSOFA score of 0- Negative Sepsis Screen. Suicide/Homicide risk assessment- the patient denies having any suicidal and/or homicidal ideations and does not present with any other emotional, behavioral or mental health complaints. Status: Patient is not a mechanical service specialist or dependent. Transition of care: patient was not received from another setting of care. 07:02 Acuity: MACARENA Level 4 kr3 07:02 Method Of Arrival: Walkin/Carried/Asstd kr3 Triage Assessment: 07:03 General: Appears in no apparent distress, comfortable, Behavior is appropriate for age, kr3 cooperative. Pain: Location: face Pain currently is 3 out of 10 on a pain scale. Quality of pain is described as pressure. HIV screening NA for this visit Offered previously. Historical: - Allergies: mushrooms; Strawberries; - Home Meds: 1. none - PMHx: none; - PSHx: none; - Social history: Smoking status: Patient uses tobacco products, current every day smoker. No barriers to communication noted, The patient speaks fluent Albanian, Speaks appropriately for age. - Family history: Not pertinent. - : The pt / caregiver states he / she is not on anticoagulants. Home medication list is obtained from the patient. - Exposure Risk Screening:: None identified. Screenin:25 Screening information is obtained from the patient. Fall risk: No risks identified. [facility] Assistance ADL's: requires no assistance with activities of daily living. Abuse/DV Screen: The patient / caregiver reports he/she is: not in a situation that causes fear, pain or injury. Nutritional screening: No deficits noted. Advance Directives: Currently, there is no health care proxy. There is no active DNR order. There is no living will. There is no Power of Director Of Enterprise [employer]. Advance directive information has not previously been placed in an [facility] medical record. Further advance directive information is declined. home support is adequate. Assessment: 07:25 General: Appears in no apparent distress, comfortable, well nourished, well groomed, kpj Behavior is appropriate for age, pleasant. Pain: Location: left cheek, left eye and left jaw Pain currently is 2 out of 10 on a pain scale. Neurological: Level of Consciousness is awake, alert, Oriented to person, place, time. EENT: Poor dentition noted. Dental caries noted in upper left first molar (#14). Respiratory: Airway is patent Respiratory effort is even, unlabored, Respiratory pattern is regular, symmetrical. Derm: Skin is pink, warm & dry. Swollen area noted on left cheek, left eye and left jaw. 07:45 General: patient requesting to receive IV Toradol prior to discharge.. kpj 08:15 Reassessment: Patient appears in no apparent distress at this time. Patient states kpj feeling better. Patient states symptoms have improved. Pain: Location: left jaw and left eye and left cheek Pain currently is 1 out of 10 on a pain scale. Respiratory: Airway is patent Respiratory effort is even, unlabored, Respiratory pattern is regular, symmetrical. Derm: Skin is pink, warm & dry. Swollen area noted on left jaw and left eye and left cheek. Vital Signs: 07:03 BP 181 / 93; Pulse 114; Resp 18; Temp 96.2(O); Pulse Ox 97% ; Weight 139.71 kg (M); kr3 Height 5 ft. 6 in. (167.64 cm) (R); 08:04 BP 139 / 81; Pulse 96; Resp 20; Temp 96.7; Pulse Ox 97% ; Pain 0/10; jam1 07:03 Body Mass Index 49.71 (139.71 kg, 167.64 cm) kr3 Vitals: 07:03 Log In Time: July 23, 2016 at 06:55. kr3 ED Course: 06:57 Patient visited by Fady Lowe, Reg. pm4 06:57 Patient moved to Waiting pm4 07:03 Triage Initiated kr3 07:06 Patient moved to I5 / kr3 07:16 César Aponte PA-C is PHCP. cc10 07:16 Billy Khalil MD is Attending Physician. cc10 07:16 Patient visited by César Aponte PA-C. cc10 07:16 Patient visited by César Aponte PA-C. cc10 07:25 No apparent distress. Resting quietly. Awaiting IV antibiotic to infuse.. kpj 07:25 The patient / caregiver is instructed regarding the plan of care and ED course. Patient kpj has correct armband on for positive identification. 07:25 IV is patent, is intact, is free of redness or swelling. saline lock 20 gauge dorsal kpj aspect right hand.. 07:[address] [facility] is Referral Physician. cc10 08:14 [facility] Payment Agreement was scanned into [employer] and attached to record. jp5 08:15 Discontinued lock intact, bleeding controlled, pressure dressing applied, No kpj redness/swelling at site. No procedures done that require assistance. 13:32 Patient name changed from Uri\S\\S\Coonradt\S\ to Uri\S\Chinmay\S\Coonradt. EDMS 15:40 T-Sheet-- Draft Copy was scanned into [employer] and attached to record. gb Administered Medications: 07:25 Drug: Clindamycin 900 mg [clindamycin 900 mg/50 mL in 5 % dextrose intravenous kpj piggyback] Route: IVPB; Infused Over: 30 mins; Site: right hand; 08:00 Follow up: IV Status: Completed infusion; Infusion discontinued kpj 08:01 Drug: ketorolac 30 mg [ketorolac 30 mg/mL (1 mL) injection solution (1 mL)] Route: IVP; kpj Site: right hand; 08:14 Follow up: Response: Pain is decreased kpj Intake: 08:01 IV: 50.00ml (NS); Total: 50.00ml. kpj Order Results: There are currently no results for this order. Outcome: 07:28 Discharge ordered by Provider. cc10 08:15 Discharge Assessment: Patient awake, alert and oriented x 3. No cognitive and/or kpj functional deficits noted. Patient verbalized understanding of disposition instructions. patient administered narcotics - no. The following High Risk Discharge criteria are identified: None. Discharged to home ambulatory. Condition: stable. Discharge instructions given to patient, Instructed on discharge instructions, follow up and referral plans. medication usage, Use of warm compresses to the affected area, Demonstrated understanding of instructions, medications, Pt was receptive of discharge instructions/ teaching. No special radiology studies were completed. Property sent home with patient. 08:16 Patient left the ED. [facility] Signatures: Dispatcher [employer] EDMS Ana Carbajal, RN RN Loreto Leiva, MACHINE SPECIALIST MACHINE SPECIALIST jam1 Yumiko Obrien, Reg Reg gb Jessica Ahn,RN RN kr3 César Aponte, PA-C PA-C cc10 Semaj Jackson jp5 Fady Lowe, Reg Reg pm4 Chart Complete MTDD
--- NOTE | 2016-07-25 09:17 | EDDOCDS ---
Physician Documentation [facility] Name: Uri Vogel Age: 41 yrs Sex: Male : 1975 Arrival Date: 07/23/2016 Time: 06:55 Bed I5 / M5 Private MD: Disposition: 07/23/16 07:28 Discharged to Home/Self Care. Impression: Cellulitis and acute lymphangitis of face and neck. - Condition is Stable. - Medication Reconciliation, Dental Referral List form. - Follow up: [facility]; When: Call to arrange an appointment; Reason: To establish care. - Problem is an ongoing problem. - Symptoms are unchanged. - Notes: Please resume the medications that were prescribed last night. Follow up with a PCP for a blood pressure recheck. Call your dentist for re-evaluation. Historical: - Allergies: mushrooms; Strawberries; - Home Meds: 1. none - PMHx: none; - PSHx: none; - Social history: Smoking status: Patient uses tobacco products, current every day smoker. No barriers to communication noted, The patient speaks fluent Arabic, Speaks appropriately for age. - Family history: Not pertinent. - : The pt / caregiver states he / she is not on anticoagulants. Home medication list is obtained from the patient. - Exposure Risk Screening:: None identified. Vital Signs: 07/23 07:03 BP 181 / 93; Pulse 114; Resp 18; Temp 96.2(O); Pulse Ox 97% ; Weight 139.71 kg / 308.01 kr3 lbs (M); Height 5 ft. 6 in. (167.64 cm) (R); 08:04 BP 139 / 81; Pulse 96; Resp 20; Temp 96.7; Pulse Ox 97% ; Pain 0/10; jam1 07:03 Body Mass Index 49.71 (139.71 kg, 167.64 cm) kr3 MDM: 07:16 IV Saline Lock ordered. cc10 07:16 Clindamycin 900 mg IVPB once over 30 mins; dilute in 50mL of NS or D5W ordered. cc10 07:16 ketorolac 30 mg IVP once ordered. cc10 08:14 [facility] Payment Agreement was scanned into [employer] and attached to record. jp5 08:14 Financial registration complete. jp5 15:40 T-Sheet-- Draft Copy was scanned into [employer] and attached to record. gb Administered Medications: 07:25 Drug: Clindamycin 900 mg [clindamycin 900 mg/50 mL in 5 % dextrose intravenous [facility] piggyback] Route: IVPB; Infused Over: 30 mins; Site: right hand; 08:00 Follow up: IV Status: Completed infusion; Infusion discontinued [facility] 08:01 Drug: ketorolac 30 mg [ketorolac 30 mg/mL (1 mL) injection solution (1 mL)] Route: IVP; [facility] Site: right hand; 08:14 Follow up: Response: Pain is decreased [facility] Signatures: Ana Carbajal RN RN [facility] Yumiko Obrien Reg Reg gb Robie, Kathleen,SHASHI RN kr3 César Aponte, PA-C PA-C cc10 Semaj Jackson jp5 The chart was reviewed and I authenticate all verbal orders and agree with the evaluation and treatment provided.Attachments: 08:14 [facility] Payment Agreement jp5 15:40 T-Sheet-- Draft Copy gb Chart [facility]
--- NOTE | 2016-07-25 09:17 | EDDOCDS ---
Physician Documentation [facility] Name: Uri Vogel Age: 41 yrs Sex: Male : 1975 Arrival Date: 07/23/2016 Time: 06:55 Bed I5 / M5 Private MD: Disposition: 07/23/16 07:28 Discharged to Home/Self Care. Impression: Cellulitis and acute lymphangitis of face and neck. - Condition is Stable. - Medication Reconciliation, Dental Referral List form. - Follow up: [facility]; When: Call to arrange an appointment; Reason: To establish care. - Problem is an ongoing problem. - Symptoms are unchanged. - Notes: Please resume the medications that were prescribed last night. Follow up with a PCP for a blood pressure recheck. Call your dentist for re-evaluation. Historical: - Allergies: mushrooms; Strawberries; - Home Meds: 1. none - PMHx: none; - PSHx: none; - Social history: Smoking status: Patient uses tobacco products, current every day smoker. No barriers to communication noted, The patient speaks fluent Persian, Speaks appropriately for age. - Family history: Not pertinent. - : The pt / caregiver states he / she is not on anticoagulants. Home medication list is obtained from the patient. - Exposure Risk Screening:: None identified. Vital Signs: 07/23 07:03 BP 181 / 93; Pulse 114; Resp 18; Temp 96.2(O); Pulse Ox 97% ; Weight 139.71 kg / 308.01 kr3 lbs (M); Height 5 ft. 6 in. (167.64 cm) (R); 08:04 BP 139 / 81; Pulse 96; Resp 20; Temp 96.7; Pulse Ox 97% ; Pain 0/10; jam1 07:03 Body Mass Index 49.71 (139.71 kg, 167.64 cm) kr3 MDM: 07:16 IV Saline Lock ordered. cc10 07:16 Clindamycin 900 mg IVPB once over 30 mins; dilute in 50mL of NS or D5W ordered. cc10 07:16 ketorolac 30 mg IVP once ordered. cc10 08:14 [facility] Payment Agreement was scanned into [employer] and attached to record. jp5 08:14 Financial registration complete. jp5 15:40 T-Sheet-- Draft Copy was scanned into [employer] and attached to record. gb Administered Medications: 07:25 Drug: Clindamycin 900 mg [clindamycin 900 mg/50 mL in 5 % dextrose intravenous [facility] piggyback] Route: IVPB; Infused Over: 30 mins; Site: right hand; 08:00 Follow up: IV Status: Completed infusion; Infusion discontinued [facility] 08:01 Drug: ketorolac 30 mg [ketorolac 30 mg/mL (1 mL) injection solution (1 mL)] Route: IVP; [facility] Site: right hand; 08:14 Follow up: Response: Pain is decreased [facility] Signatures: Ana Carbajal RN RN [facility] Yumiko Obrien Reg Reg gb Robie, Kathleen,SHASHI RN kr3 César Aponte, PA-C PA-C cc10 Semaj Jackson jp5 The chart was reviewed and I authenticate all verbal orders and agree with the evaluation and treatment provided.Attachments: 08:14 [facility] Payment Agreement jp5 15:40 T-Sheet-- Draft Copy gb [facility]
== END 2016-07-23 08:16 | disposition home or self-care (01) ==
LOC: M ED 06:55
DX: L03.211 Cellulitis of face (principal); F17.210 Nicotine dependence, cigarettes, uncomplicated; Z91.018 Allergy to other foods
CPT/HCPCS: 96365; 96375; 99283; J1885